=== PATIENT | female | born 1995 | race Caucasian/White ===

== ENCOUNTER 2016-12-28 11:36 | Emergency (ER) | payer OTHER | END 2016-12-28 12:35 | disposition home or self-care (01) | LOC: ER1 11:36 | DX: S93.402A Sprain of unspecified ligament of left ankle, initial encounter (principal); W23.0XXA Caught, crushed, jammed, or pinched between moving objects, initial encounter; Z88.2 Allergy status to sulfonamides | CPT/HCPCS: 73610; 99283 ==

== ENCOUNTER 2021-07-31 17:07 | Emergency (ER) | payer OTHER ==
[~2021-07-31 17:07] MED LIST: CLEOCIN HCL300 MG PO; IBUPROFEN800 MG PO; KEFLEX SUS250 MG/5 M PO
[2021-07-31 18:48] LABS: HEMOGLOBIN 12.8 gm/dl (12.3-15.3); RED BLOOD COUNT 4.91 M/UL (4.00-5.10); WHITE BLOOD COUNT 11.2 K/UL (4.5-11.0)
[2021-07-31 19:18] LABS: BUN/CREATININE RATIO 16 (0-10)
== END 2021-07-31 20:55 | disposition home or self-care (01) ==
LOC: ER1 17:07
PROVIDERS: Physician Assistant
DX: R10.31 Right lower quadrant pain (principal); Z88.1 Allergy status to other antibiotic agents; Z91.041 Radiographic dye allergy status
CPT/HCPCS: 80053; 81001; 84703; 85025; 99284